=== PATIENT | male | born 1950 | race Caucasian/White ===

== ENCOUNTER 2017-06-02 10:32 | Outpatient (CLI) | payer BC ==
--- NOTE | 2017-06-02 15:14 | NM ---
WHOLE BODY BONE SCAN: INDICATION: Elevated PSA with low back pain. RADIOPHARMACEUTICAL: 33 mCi Technetium 99m-MDP IV. FINDINGS: There are numerous scattered areas of radiotracer accumulation involving the spine, pelvis, and right proximal femur. A mild area of activity is seen within the region of the right humeral head. Findi ngs are suspicious for osseous metastatic disease. IMPRESSION: Findings most suspicious for diffuse osseous metastatic disease of the spine, pelvis, right proximal femur, and right humerus. POS: [facility]
== END 2017-06-02 10:33 | disposition home or self-care (01) ==
LOC: NM 10:32
PROVIDERS: ATTEND Family Medicine
DX: R97.20 Elevated prostate specific antigen [PSA] (principal)
CPT/HCPCS: 78306; A9503

== ENCOUNTER 2017-06-23 07:04 | Outpatient (CLI) | payer BC ==
[2017-06-23 07:57] LABS: Estimated GFR-MDRD - POC Greater than 90
[2017-06-23] MEDS ORDERED: Gadobenate Dimeglumine 529 MG/1 ML (20ML VIAL) ONE (09:00)
--- NOTE | 2017-06-23 09:36 | CT ---
CONTRAST ENHANCED CT CHEST CONTRAST ENHANCED CT ABDOMEN AND PELVIS: History: Elevated PSA. History of prostate cancer. Technique: Contrast enhanced CT images of the chest, abdomen and pelvis were obtained. FINDINGS: There is extensive thoracic, lumbar, iliac, sacral, and proximal right femoral sclerotic osseous lesi ons compatible with extensive metastatic disease. No evidence of lung parenchymal lesions seen. No evidence of mediastinal, axillary, or hilar lymphadenopathy is seen. The liver, spleen, pancreas, gallbladder, adrenal glands, and kidneys are unremarkable. There does appear to be some mild periaortic lymphadenopathy. IMPRESSION: 1. Extensive osseous metastatic disease. 2. Periaortic lymphadenopathy. POS: [facility]
--- NOTE | 2017-06-23 11:04 | MRI ---
MRI PELVIS WITH AND WITHOUT CONTRAST: Date: 06/23/17 HISTORY: Prostate cancer. Bone mets. M25.551. Pain. COMPARISON: CT dated 03/01/16. FINDINGS: Bones: There is extensive osseous metastatic disease, markedly advanced from prior CT examination. Metastasi s involving the sacrum, ilium, lumbar spine, fever, and ischial tuberosities. No definite pathologic fracture is appreciated. Muscles: There is edema to the iliopsoas muscle. There is also edema within the adductors and obturator muscle s. Moderate edema within the gluteus sendy muscle. There is also abnormal edema within the quadratu s femoris muscle. Tendons: There is a complete rupture of the common hamstring tendon and semimembranosus and ischial tuberosity with a fluid-filled gap. The tendons are retracted approximately 3.0 cm. There is dilatation of the inferior gluteal veins. Intrapelvic Soft Tissues: Prostate is enlarged and abnormal. IMPRESSION: 1. Extensive osseous metastatic disease, markedly advanced from the 03/01/16 examination. 2. Pathologic fracture, nondisplaced, of the right acetabulum. 3. Full thickness rupture of the common hamstring tendon as well as semimembranosus with retraction of about 3.0 cm. 4. Extensive edema of the adductor musculature on the right, as well as the quadratus femoris. POS: [facility]
== END 2017-06-23 07:05 | disposition home or self-care (01) ==
LOC: SCSCT 07:04
PROVIDERS: ATTEND Internal Medicine Hematology & Oncology
DX: C79.51 Secondary malignant neoplasm of bone (principal); C61 Malignant neoplasm of prostate; M25.551 Pain in right hip; R59.0 Localized enlarged lymph nodes; R60.0 Localized edema; M84.48XA Pathological fracture, other site, initial encounter for fracture
CPT/HCPCS: 71260; 72197; 74177; A9579

== ENCOUNTER 2017-09-30 15:56 | Outpatient (CLI) | payer BC | END 2017-09-30 15:57 | disposition home or self-care (01) | LOC: BICRAD 15:56 | PROVIDERS: ATTEND Radiology Radiation Oncology | DX: C61 Malignant neoplasm of prostate (principal); C79.51 Secondary malignant neoplasm of bone; M25.551 Pain in right hip | CPT/HCPCS: 72170 ==

== ENCOUNTER 2017-10-20 13:13 | Outpatient (CLI) | payer BC | END 2017-10-20 13:14 | disposition home or self-care (01) | LOC: BICCT 13:13 | PROVIDERS: ATTEND Family Medicine | DX: R51 Headache (principal) | CPT/HCPCS: 70450 ==

== ENCOUNTER 2018-03-18 10:47 | Outpatient (CLI) | payer MEDICARE ==
[2018-03-18 11:30] LABS: Estimated GFR-MDRD - POC Greater than 90
[2018-03-18] MEDS ORDERED: Iopamidol 370 76% 100 ML VIAL ONE (13:32)
--- NOTE | 2018-03-18 15:52 | CT ---
CHEST AND ABDOMEN AND PELVIC CT SCAN WITH IV CONTRAST: Date: 03/18/18 HISTORY: Prostate cancer with bone metastasis in a 67-year-old male. Mid left back pain for 2 months. COMPARISON: 06/23/17. FINDINGS: Postcontrast CT examination of the chest, abdomen, and pelvis is performed. There is extensive blasti c metastasis throughout the visualized bony skeleton. No evidence for pulmonary nodule or acute pulmo nary parenchymal process. Stable 4.4 cm diameter aneurysmal dilatation of the ascending aorta. No med iastinal or hilar mass or adenopathy. Three vessel coronary artery calcific disease. Several small stable hypodensities within the liver. Stable approximately 4.0 cm diameter circumscrib ed fluid collection in the anson hepatis, possibly a choledochal cyst. There has been definite improv ement in the previously noted retroperitoneal, periaortic, and aortocaval adenopathy. One left periao rtic node now measures 0.6 cm short axis, where it previously measured 0.8 cm short axis. A second le ft periaortic node now measures 0.6 cm, where it previously measured 1.0 cm short axis. A somewhat mo re caudal left periaortic node measures 0.8 cm, where it previously measured 1.5 cm transversely. Aor tocaval node just above the level of the bifurcation posteriorly measures 0.5 cm short axis, where it previously measured 1.0 cm short axis. No evidence for renal calculi or acute obstruction. Several small renal hypodensities, stable, ema dence for small cysts. No abscess or abnormal fluid collection. No evidence of ascites. IMPRESSION: 1. Overall stable extensive blastic bone metastasis. 2. Stable thin-walled fluid collection in the anson hepatis, possibly a choledochal cyst. 3. Stable renal cysts. 4. Definite improvement in the previously noted retroperitoneal and periaortic adenopathy when lidia red to 06/23/17. POS: [facility]
--- NOTE | 2018-03-18 16:06 | NM ---
WHOLE BODY BONE SCAN: 03/18/18 Reference made to 06/02/17 exam. CLINICAL HISTORY: Malignant neoplasm of the prostate. RADIOPHARMACEUTICAL: 32 millicuries technetium 99m MDP IV. FINDINGS/IMPRESSION: Redemonstration of diffuse foci of abnormal radiotracer uptake involving the spine, pelvis, right mihaela ulder girdle, ribs bilaterally, and proximal right femur. The overall distribution of osseous metastatic disease is grossly stable. Continued imaging followup may prove useful. POS: [facility]
== END 2018-03-18 10:48 | disposition home or self-care (01) ==
LOC: NM 10:47
PROVIDERS: ATTEND Internal Medicine Hematology & Oncology
DX: C61 Malignant neoplasm of prostate (principal); C79.51 Secondary malignant neoplasm of bone; N28.1 Cyst of kidney, acquired; R59.0 Localized enlarged lymph nodes
CPT/HCPCS: 71260; 74177; 78306; 82565; A9503

== ENCOUNTER 2018-03-31 13:33 | Outpatient (CLI) | payer MEDICARE ==
[2018-03-31] MEDS ORDERED: Gadobenate Dimeglumine 529 MG/1 ML (20ML VIAL) ONE (15:21)
--- NOTE | 2018-03-31 18:04 | MRI ---
MRI OF LUMBAR SPINE WITH AND WITHOUT CONTRAST: 03/31/18 HISTORY: Prostate cancer, C61. Bone mets C79.51. COMPARISON: None. FINDINGS: The aortic contour is nonaneurysmal. T2 hyperintensity structure is unchanged in the anson hepatis. T 2 hyperintense foci present throughout both kidneys suggestive of cysts. Osseous metastatic disease is present involving the L4, L3, L2, L1, T12, spinous processes as well as the L4 right lamina pedicle on posterior vertebral body, L1 superior end plate, T12 and T11 vertebra l bodies as well as posterior elements of T12. Metastatic disease is also seen involving the L3 and L 2 vertebral bodies and posterior elements. There is enhancement of the metastatic focus of the right pedicle at L4 as well as the L3 vertebral body and L4 spinous process. Levels are as follows: T12-L1: Circumferential disc bulge. Small central annular fissure. Mild facet arthrosis. No significa nt neural foraminal or spinal canal narrowing. L1-2: Circumferential disc bulge. Small bilateral subforaminal and posterior disc osteophyte complexe s. No significant neural foraminal or spinal canal narrowing. L2-3: Mild disc desiccation. There is a central small annular fissure and disc protrusion. The spinal canal at this level measures approximately 1 cm. Mild facet hypertrophic changes. No significant adrianne ral foraminal narrowing. L3-4: Very low grade disc bulge. There are moderate bilateral subforaminal posterior disc osteophyte complexes. Moderate bilateral neural foraminal narrowing. Spinal canal is not significantly narrowed. L4-5: There is disc desiccation. Low grade central annular fissure. Mild facet arthropathy. Very low grade bilateral subforaminal and posterior disc osteophyte complexes. Mild bilateral neural foraminal narrowing. L5-S1: Moderate degenerative disc space height loss. Central annular fissure. Moderate hypertrophic c hanges. Moderate right and mild left sided neural foraminal narrowing. Perineural cyst is noted on th e left S2 nerve root. IMPRESSION: Extensive osseous metastatic disease with low grade spondylosis. No evidence of spinal cord impingeme nt, nerve encroachment, or definite nerve root abutment. POS: [facility]
== END 2018-03-31 13:34 | disposition home or self-care (01) ==
LOC: BICMRI 13:33
PROVIDERS: ATTEND Internal Medicine Hematology & Oncology
DX: C61 Malignant neoplasm of prostate (principal); C79.51 Secondary malignant neoplasm of bone; M47.816 Spondylosis without myelopathy or radiculopathy, lumbar region
CPT/HCPCS: 72157; 72158; A9579

== ENCOUNTER 2018-11-23 08:52 | Outpatient (CLI) | payer MEDICARE ==
--- NOTE | 2018-11-23 10:23 | CT ---
CT CHEST AND ABDOMEN AND PELVIS WITH CONTRAST: Oral contrast was also administered. INDICATION: Prostate cancer with bone metastasis. COMPARISON: CT chest, abdomen, and pelvis 03/18/2018. FINDINGS: CT CHEST: The lung guido are clear. Some mild atelectasis in the left lung base. Some minimal stranding in t he right lung base. No pulmonary mass or nodule. Mediastinum unremarkable. Mild aneurysmal dilatation of the [id number] aorta has been previously not ed and is stable. No mediastinal or hilar adenopathy. No evidence of axillary adenopathy. Thyroid unremarkable. The diffuse sclerotic bone lesions seen throughout the thoracic spine and rib cage appear unchanged. IMPRESSION: Stable chest CT findings. Diffuse bone metastasis again noted without evidence of significant change . CT ABDOMEN AND PELVIS: Liver, spleen, and pancreas unremarkable. The cystic structure in the anson hepatis has been previou sly described and is a possible choledochal cyst. This is a stable finding. Adrenal glands and kidneys unremarkable. Small bowel loops unremarkable. Colon unremarkable with scattered stool throughout. Aorta normal ca liber. There are tiny nonspecific periaortic lymph nodes which are subcentimeter today. There has been cont inued regression of the retroperitoneal lymph nodes when compared to the 03/18/2018 exam. A small per iaortic lymph node to the left aorta just above the bifurcation measures 7 mm today. This node previ ously measured 8-10 mm. Other small lymph nodes noted previously in the 6-8 mm range have regressed. Images through the pelvis show sigmoid diverticulosis. No pelvic adenopathy. No evidence of prostat ic enlargement. The diffuse sclerotic lesion seen throughout the lumbar spine and pelvis showed no significant interv al change. IMPRESSION: 1. Continued regression of the retroperitoneal lymph nodes. 2. Diffuse bony metastatic sclerotic lesions again noted and without evidence of significant change. POS: [facility]
--- NOTE | 2018-11-23 14:59 | NM ---
WHOLE BODY BONE SCAN: HISTORY: Malignant neoplasm of prostate. COMPARISON: 03/18/2018. RADIOPHARMACEUTICAL: 32 mCi Technetium 99m MDP injected intravenously. FINDINGS: Numerous foci of increased uptake in the skeleton are again seen involving the spine, pelvis, ribs, r ight shoulder, and right proximal femur. No new lesions are seen. Tracer excretion through the kidn eys is within normal limits. IMPRESSION: Osseous metastatic disease, essentially stable since 03/18/2018. POS: [facility]
== END 2018-11-23 08:53 | disposition home or self-care (01) ==
LOC: CT 08:52
PROVIDERS: ATTEND Internal Medicine Hematology & Oncology
DX: C61 Malignant neoplasm of prostate (principal); C79.51 Secondary malignant neoplasm of bone
CPT/HCPCS: 71260; 74177; 78306; A9503

== ENCOUNTER 2018-12-07 12:29 | Outpatient (CLI) | payer MEDICARE | END 2018-12-07 12:30 | disposition home or self-care (01) | LOC: ULT 12:29 | PROVIDERS: ATTEND Internal Medicine Hematology & Oncology | DX: C61 Malignant neoplasm of prostate (principal); C79.51 Secondary malignant neoplasm of bone; I08.8 Other rheumatic multiple valve diseases | CPT/HCPCS: 93306 ==

== ENCOUNTER 2019-04-27 08:08 | Day surgery (SDC) | payer MEDICARE ==
[2019-04-26 08:39] VITALS: BMI 23.0
[2019-04-27] MEDS ORDERED: Ketorolac Tromethamine 30 MG/ML VIAL ONE (08:42)
--- NOTE | 2019-04-27 08:55 | RAD ---
CHEST 1 VIEW: Date: 04/27/2019 INDICATION: History of preop evaluation. COMPARISON: Prior PA and lateral dated 01/06/19. IMPRESSION: No acute air space opacity or pleural effusion is evident. Heart size is normal. Scattered osteoblast ic metastatic lesions of the bilateral chest wall and thoracolumbar spine are stable appearing. POS: [facility]
[2019-04-27 09:11] LABS: #Lymphocytes 0.5 thou/uL (1.20-3.40); #Monocytes 0.1 thou/uL (0.11-0.59); #Neutrophils 9.8 thou/uL (1.40-6.50); %Eosinophils 0.1 % (0.0-10.0); %Lymphocytes 4.6 % (21.0-51.0); %Monocytes 0.5 % (0.0-10.0); %Neutrophils 94.8 % (42.0-75.0); Hemoglobin 12.7 g/dL (14.0-18.0); Mean Corpuscular HGB CONC 33.5 g/dL (32.0-36.0); Mean Corpuscular Hemoglobin 31.8 pg (27.0-31.0); Mean Corpuscular Volume 94.8 fL (78.0-98.0); Mean Platelet Volume 7.6 fL (7.4-10.4); Platelet Count 281 thou/uL (130-400); RBC Distribution Width 14.3 % (11.5-14.5); White Blood Cell (WBC) Count 10.3 thou/uL (4.8-10.8)
[2019-04-27 09:33] LABS: Anion Gap 13 mmol/L (10-20); BUN (Urea Nitrogen) 24 mg/dL (8.4-25.7); Calc. Creatinine Clearance 107 mL/min (70-130); Carbon Dioxide 21 mmol/L (23-31); Chloride 112 mmol/L (98-107); Estimated GFR-MDRD Greater than 90; Glucose 138 mg/dL (80-115); Potassium 4.4 mmol/L (3.5-5.1); Sodium 142 mmol/L (136-145)
[2019-04-27] MEDS ORDERED: Lidocaine 1% w/Epinephrine 1:100K 20 ML VIAL ONE (10:00)
[2019-04-27] MEDS ORDERED: Bupivacaine 0.25% HCL 30 ML VIAL ONE (10:00)
[2019-04-27] MEDS ORDERED: Midazolam HCl 2 mg/2 ml Vial ONE (10:02)
[2019-04-27] MEDS ORDERED: Fentanyl 100 MCG/2 ML VIAL ONE (10:02)
--- NOTE | 2019-04-27 11:56 | RAD ---
Exam: Chest one view HISTORY:Status post Mediport catheter placement Comparison: 04/27/2019 FINDINGS: Cardiac silhouette: Normal Aorta: Unremarkable Pulmonary vessels: Normal Costophrenic angles: Clear LUNGS: No masses or consolidation. Segmental scarring in the left lower lobe. Lines and tubes: Interval placement of right-sided Port-A-Cath, terminating in the superior vena cava . Pneumothorax: None Osseous abnormalities: None IMPRESSION: 1. Interval placement of right-sided Port-A-Cath, terminating in the superior vena cava. 2. No pneumothorax.
[2019-04-27] MEDS ORDERED: PROPOFOL 200 MG/20 ML VIAL ONE (15:59)
--- NOTE | 2019-04-28 05:23 | OP ---
DATE OF PROCEDURE: 04/27/2019 PREOPERATIVE DIAGNOSIS: Metastatic prostate cancer. POSTOPERATIVE DIAGNOSIS: Metastatic prostate cancer. OPERATION PERFORMED: Placement of a right subclavian low-profile power compatible MediPort. ANESTHESIA: Total intravenous anesthesia with local using 0.25% Marcaine with epinephrine. INDICATIONS: The patient is a 68-year-old white male, who presented with metastatic prostate cancer. MediPort placement was requested for chemotherapy administration. DESCRIPTION OF OPERATION: Informed consent was obtained. The patient was taken to the operating room where total intravenous anesthesia was obtained with the patient in supine position. Right periclavicular area was prepped with ChloraPrep and draped in sterile fashion. Local anesthetic was infiltrated and a large-gauge needle was passed under the clavicle in the subclavian vein. Guidewire was passed through the needle and fluoroscopically confirmed to enter the superior vena cava. Additional local anesthetic was infiltrated and transverse incision was created based on needle insertion site. A subcutaneous pocket was dissected inferiorly. Introducer dilator was passed over the guidewire under fluoroscopic guidance. The guidewire and dilator were removed, and the catheter was passed through the introducer. The tip of the catheter was positioned at the atriocaval junction and the catheter was trimmed to the appropriate length and secured to the locking hub of the MediPort. The port was then placed in the subcutaneous pocket where it was secured to the pectoral fascia with 2 interrupted sutures of 3-0 Prolene. The incision was then closed in layers with 3-0 and 4-0 Monocryl. Additional local anesthetic was infiltrated. The port was cannulated with a Mahoney needle and it aspirated blood freely and was flushed with heparinized saline. Dermabond was placed externally on the skin incision. There were no complications. Blood loss was negligible. The patient tolerated the procedure well and was taken to recovery room in stable condition. FINDINGS: A low-profile port was selected, because of his body habitus. His anatomy externally and internally appeared to be within normal limits. Fluoroscopy was used throughout the procedure. There were no complications and no significant blood loss. He was taken to recovery in stable condition. Job ID: [id number]
--- NOTE | 2019-05-02 10:22 | EKG ---
Test Reason : PREOP Blood Pressure : / mmHG Vent. Rate : 077 BPM Atrial Rate : 077 BPM P-R Int : 166 ms QRS Dur : 088 ms QT Int : 392 ms P-R-T Axes : 037 011 016 degrees QTc Int : 443 ms Normal sinus rhythm Normal ECG When compared with ECG of 01-NOV-2014 09:02, Questionable change in QRS axis Confirmed by INGA DOW (2) on 05/02/2019 10:21:57 AM Referred By: MOISE Confirmed By:INGA DOW
== END 2019-04-27 12:15 | disposition home or self-care (01) ==
LOC: SDC 08:08
PROVIDERS: ATTEND Specialist
PROC: 0JH63WZ Insertion of Totally Implantable Vascular Access Device into Chest Subcutaneous Tissue and Fascia, Percutaneous Approach (ICD-10-PCS; principal; 2019-04-27)
PROC: 02HV33Z Insertion of Infusion Device into Superior Vena Cava, Percutaneous Approach (ICD-10-PCS; 2019-04-27)
DX: C61 Malignant neoplasm of prostate (principal); C79.51 Secondary malignant neoplasm of bone; M19.90 Unspecified osteoarthritis, unspecified site; Z79.52 Long term (current) use of systemic steroids; Z79.899 Other long term (current) drug therapy
CPT/HCPCS: 36561; 71045; 80048; 80053; 82248; 83615; 84100; 84153; 84550; 85025; 93005; C1788; 93010; J0690; J1642; J1885; J2250; J2704; J3010; S0020

== ENCOUNTER 2019-06-01 08:23 | Outpatient (CLI) | payer MEDICARE ==
--- NOTE | 2019-06-01 11:01 | CT ---
CT OF CHEST AND ABDOMEN AND PELVIS PERFORMED WITH INTRAVENOUS CONTRAST ENHANCEMENT: HISTORY: Prostate cancer with secondary neoplasm of bone. Followup. Patient on chemotherapy. COMPARISON: 11/23/2018 study. FINDINGS: The lungs are clear of any infiltrative process. Some interstitial changes seen in the right upper l obe on the prior exam which appear to represent some subtle tree-in-bud nodularity have resolved. Wi thin the superior segment of the right lower lobe there has been development of a small 6-7 mm slight ly ill-defined nodule seen on axial image 35. Review is also made of a 2018 CT examination. It was not present at that time. Interstitial change in the left base is stable and appears to represent so me scarring. Tiny left pleural effusion is present. This has not present on the prior exam. There is no significant mediastinal, hilar, or axillary lymphadenopathy noted. CT OF ABDOMEN PERFORMED WITH CONTRAST ENHANCEMENT: Small hypodensities are seen within the liver and are stable, most likely small cysts. The spleen sh ows no focal abnormalities. It measures 13.6 cm in length. It appears slightly enlarged. Pancreas region and gallbladder are unremarkable. Right and left adrenal glands and right and left kidneys are normal in size. Tiny subcentimeter odalys aortic nodes are not substantially different than the prior exam. A left periaortic node measured on the prior examination at 7 mm on axial image 89 is unchanged. No significant mesenteric lymphadenop athy. CT OF PELVIS PERFORMED WITH CONTRAST ENHANCEMENT: Some moderate diverticulosis of the sigmoid colon. No evidence of any significant pelvic lymphadenop athy or mass. No significant inguinal adenopathy. Review of osseous structures once again shows numerous blastic bone lesions. These changes appear st able. IMPRESSION: 1. Stable overall examination with the exception of the development of a small 7 mm somewhat ill-def ined superior segment right lower lobe pulmonary nodule. It is possible this is a tiny area of nodul ar pneumonitis change, but could represent a new pulmonary nodule and would warrant followup. There is also a tiny left pleural effusion that has developed since the prior exam. 2. Borderline spleen size. 3. Colonic diverticulosis. 4. No change in size of the periaortic nodes. 5. Stable appearance to the bone lesions. 6. 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 This is located approximately 4-5 cm distal from the jacki gin and is stable in size as compared to the 11/13/2018 as well as the 03/18/2018 study. POS: [facility]
--- NOTE | 2019-06-01 13:20 | NM ---
Whole body bone scan: 06/01/2019 COMPARISON: 11/23/2018 TECHNIQUE: Anterior and posterior whole-body imaging obtained following the intravenous administratio n of 33 mCi technetium 99m labeled MDP Findings: Physiologic activity in the kidneys and urinary bladder noted. Metastatic foci are noted in the region of the proximal right femoral shaft and right femoral neck. Foci of increased radiotracer activity in the region of bilateral sacroiliac joints/medial iliac wings suggest osseous metastatic disease, right greater than left. Multifocal pelvic metastatic disease noted, most prominent on the right in the region of the ischii and inferior pubic ramus. Numerous lesions of the spine again noted, including multiple small upper thoracic spine lesions best seen on posterior imaging, as well as prominent lesions at the T10 and T11 levels. Numerous additional lesions are note d within the lumbar spine, stable, most conspicuous within the upper lumbar spine. A stable lesion within the medial aspect of the posterior left T7 rib is suspected. Stable upper late ral right rib lesion and stable lesion overlying the proximal right humerus. No new osseous metastatic foci. IMPRESSION: No significant interval change in extensive osseous metastatic disease when compared to t he 11/23/2018 examination.
[2019-06-01] MEDS ORDERED: Iopamidol 370 76% 100 ML VIAL ONE (14:38)
== END 2019-06-01 08:24 | disposition home or self-care (01) ==
LOC: CT 08:23
PROVIDERS: ATTEND Internal Medicine Hematology & Oncology
DX: C79.51 Secondary malignant neoplasm of bone (principal); C61 Malignant neoplasm of prostate; J90 Pleural effusion, not elsewhere classified; R91.1 Solitary pulmonary nodule; K57.30 Diverticulosis of large intestine without perforation or abscess without bleeding
CPT/HCPCS: 71260; 74177; 78306; A9503; Q9967

== ENCOUNTER 2019-07-25 08:06 | Day surgery (SDC) | payer MEDICARE ==
[2019-07-24 12:52] VITALS: BMI 24.4
[2019-07-25 08:47] LABS: INR-International Normal Ratio 0.9; Prothrombin Time 11.9 SEC (12.0-14.7)
[2019-07-25 08:48] LABS: PTT 33.7 SEC (22.9-36.1)
[2019-07-25 15:59] VITALS: BP 118/77; TEMP 97.9
--- NOTE | 2019-07-25 16:51 | CT ---
CT-guided bone lesion biopsy right ilium: DATE: 07/25/2019 HISTORY: 68-year-old male with history of prostate cancer presents with numerous osteoblastic skeletal lesions . TECHNIQUE: Signed informed consent obtained. Patient placed prone on CT table. One of the right iliac bone scler otic lesions was targeted. The skin posterior to the posterior superior iliac spine was prepped and draped in usual sterile fashion. 25-gauge needle used to apply buffered lidocaine superficially and d eeply, including at the periosteum. 12-gauge Arrow Oncontrol bone biopsy needle with stylette, was advanced under step CT guidance, gaining purchase at the posterior cortical bone. Stylette was remove d. Normal rise drill was mounted on the hollow outer cannula, and was advanced deep into the iliac bone, and withdrawn. Compression was held at the puncture site. Bone plug tissue sample fragments or placed on slide and given to the pathologist. Patient tolerated procedure well. No comp occasions. IMPRESSION: Successful 12-gauge motorized core biopsy of one of the numerous osteoblastic skeletal lesions, targe ting right ilium.
== END 2019-07-25 12:40 | disposition home or self-care (01) ==
LOC: CT 08:06
PROVIDERS: ATTEND Internal Medicine Hematology & Oncology
PROC: 0QB23ZX Excision of Right Pelvic Bone, Percutaneous Approach, Diagnostic (ICD-10-PCS; principal; 2019-07-25)
DX: C61 Malignant neoplasm of prostate (principal); C79.51 Secondary malignant neoplasm of bone; M19.90 Unspecified osteoarthritis, unspecified site
CPT/HCPCS: 20225; 36415; 77002; 85610; 85730; 88307; 88311; 88333; 88342

== ENCOUNTER 2020-01-16 12:31 | Outpatient (CLI) | payer MEDICARE ==
--- NOTE | 2020-01-16 13:37 | ULT ---
ULTRASOUND DOPPLER DUPLEX VENOUS RIGHT UPPER EXTREMITY: DATE: 01/16/2020 HISTORY: Right upper extremity edema. 69-year-old male. TECHNIQUE: Grayscale, color-flow, and spectral analysis, of the right internal jugular, subclavian, axillary, br achial, basilic, cephalic, radial, and ulnar, veins. Compression and release applied to all veins except the subclavian. FINDINGS: There is demonstration of blood flow in the subclavian vein. There is demonstration of blood flow and normal compressibility in all other veins. IMPRESSION: Negative. No deep venous thrombosis of right upper extremity.
== END 2020-01-16 12:32 | disposition home or self-care (01) ==
LOC: ULT 12:31
PROVIDERS: ATTEND Internal Medicine Hematology & Oncology
DX: M79.601 Pain in right arm (principal); R60.0 Localized edema

== ENCOUNTER 2020-04-16 13:30 | Outpatient (CLI) | payer MEDICARE ==
[2020-04-16 14:41] LABS: Estimated GFR-MDRD - POC Greater than 90
--- NOTE | 2020-04-16 15:40 | MRI ---
MRI THORACIC SPINE WITH AND WITHOUT CONTRAST: 04/16/20 INDICATIONS: Metastatic prostate cancer. Back pain. Prior bone scan from 05/2019 demonstrate evidence of diffuse metastatic osseous disease involving spin e and pelvis. FINDINGS: Abnormal signal is seen in multiple thoracic vertebrae consistent with metastatic involvement. Verteb ral bodies maintain height and alignment without compression. Diffuse abnormal signal seen in the T1 vertebra. Abnormal signal is seen in the posterior T2 vertebra to the left. Abnormal signal seen post erior T3. Focal signal abnormality at T5, T6, T7, T8, T9, T10, T11 and T12. These findings correspond to CT of 06/01/19 which showed numerous areas of sclerosis involving the tho racic spine. Disc bulge at T2-T3 flattens the anterior thecal sac without cord compression. Disc bulge also seen a t T3-4 and T4-5 with small central protrusion at T4-5 indenting the anterior thecal sac. No evidence of central canal stenosis. The thoracic cord signal is normal. IMPRESSION: 1. Extensive metastatic disease to the thoracic spine with involvement of the visualized vertebr a with exception of T4. 2. Small disc protrusion at T4-5 and disc bulge at T2-3 and T3-4. POS: [facility]
== END 2020-04-16 13:31 | disposition home or self-care (01) ==
LOC: MRI 13:30
PROVIDERS: ATTEND Radiology Radiation Oncology
DX: C79.51 Secondary malignant neoplasm of bone (principal); C61 Malignant neoplasm of prostate; M51.24 Other intervertebral disc displacement, thoracic region
CPT/HCPCS: 72157; 82565

== ENCOUNTER 2020-05-08 11:01 | Outpatient (CLI) | payer MEDICARE ==
--- NOTE | 2020-05-08 16:57 | NM ---
RADIONUCLIDE THERAPY (WITH RADIUM-223): 05/08/20 HISTORY: 69-year-old male with metastatic prostate cancer. Malignant neoplasm of prostate. Second malignant ne oplasm of bone. TECHNIQUE: After discussing the risks, benefits, alternatives and radiation precaution issues with the patient, verbal and written consent were obtained for the intravenous administration of Torreon-223. The patien t verbalized understanding. 125.8 microcuries of Torreon-223 were slowly injected intravenously over one minute. There were no imm ediate complications. This was the first of six treatments. The patient will return for the second treatment in six weeks. IMPRESSION: Radionuclide therapy with Torreon-223 as above. POS: [facility]
== END 2020-05-08 11:02 | disposition home or self-care (01) ==
LOC: NM 11:01
PROVIDERS: ATTEND Radiology Radiation Oncology
DX: C61 Malignant neoplasm of prostate (principal); C79.51 Secondary malignant neoplasm of bone
CPT/HCPCS: 79101; A9606; J1642

== ENCOUNTER 2020-05-23 11:55 | Outpatient (CLI) | payer MEDICARE | END 2020-05-23 11:56 | disposition home or self-care (01) | LOC: BICRAD 11:55 | PROVIDERS: ATTEND Radiology Radiation Oncology | DX: C61 Malignant neoplasm of prostate (principal); C79.51 Secondary malignant neoplasm of bone ==

== ENCOUNTER 2020-06-14 10:46 | Outpatient (CLI) | payer MEDICARE | END 2020-06-14 10:47 | disposition home or self-care (01) | LOC: NM 10:46 | PROVIDERS: ATTEND Radiology Radiation Oncology | DX: Z51.0 Encounter for antineoplastic radiation therapy (principal); C61 Malignant neoplasm of prostate; C79.51 Secondary malignant neoplasm of bone | CPT/HCPCS: 79101; A9606; J1642 ==

== ENCOUNTER 2020-07-26 10:56 | Outpatient (CLI) | payer MEDICARE ==
[2020-07-26] MEDS ORDERED: Sodium Chloride 0.9% 10 ML ONE (12:15)
== END 2020-07-26 10:57 | disposition home or self-care (01) ==
LOC: NM 10:56
PROVIDERS: ATTEND Radiology Radiation Oncology
DX: C61 Malignant neoplasm of prostate (principal); C79.51 Secondary malignant neoplasm of bone
CPT/HCPCS: 79101; A9606; J1642

== ENCOUNTER 2020-08-12 08:10 | Outpatient (CLI) | payer MEDICARE ==
[2020-08-12 09:12] LABS: Estimated GFR-MDRD - POC Greater than 90
[2020-08-12] MEDS ORDERED: Iopamidol 370 76% 100 ML VIAL ONE (10:34)
== END 2020-08-12 08:11 | disposition home or self-care (01) ==
LOC: CT 08:10
PROVIDERS: ATTEND Internal Medicine Hematology & Oncology
DX: C61 Malignant neoplasm of prostate (principal); C79.51 Secondary malignant neoplasm of bone
CPT/HCPCS: 71260; 74177; 78306; 82565; A9503; Q9967

== ENCOUNTER 2020-08-29 11:03 | Outpatient (CLI) | payer MEDICARE | END 2020-08-29 11:04 | disposition home or self-care (01) | LOC: NM 11:03 | PROVIDERS: ATTEND Radiology Radiation Oncology | DX: C61 Malignant neoplasm of prostate (principal); C79.51 Secondary malignant neoplasm of bone | CPT/HCPCS: 79101; A9606; J1642 ==

== ENCOUNTER 2020-10-04 10:50 | Outpatient (CLI) | payer MEDICARE ==
[2020-10-04] MEDS ORDERED: Sodium Chloride 0.9% 10 ML ONE (12:16)
== END 2020-10-04 10:51 | disposition home or self-care (01) ==
LOC: NM 10:50
PROVIDERS: ATTEND Radiology Radiation Oncology
DX: C61 Malignant neoplasm of prostate (principal); C79.51 Secondary malignant neoplasm of bone
CPT/HCPCS: 79101; A9606; J1642

== ENCOUNTER 2020-11-17 08:26 | Emergency (ER) | payer MEDICARE ==
[2020-11-17 09:01] LABS: #Eosinphils 0.1 thou/uL (0.0-0.7); #Lymphocytes 0.3 thou/uL (1.20-3.40); #Monocytes 0.3 thou/uL (0.11-0.59); #Neutrophils 3.5 thou/uL (1.40-6.50); %Basophils 0.2 % (0.0-1.0); %Eosinophils 2.3 % (0.0-10.0); %Lymphocytes 6.9 % (21.0-51.0); %Monocytes 8.1 % (0.0-10.0); %Neutrophils 82.5 % (42.0-75.0); Hemoglobin 8.5 g/dL (14.0-18.0); Mean Corpuscular HGB CONC 34.7 g/dL (32.0-36.0); Mean Corpuscular Hemoglobin 32.3 pg (27.0-31.0); Mean Corpuscular Volume 93.1 fL (78.0-98.0); Mean Platelet Volume 8.7 fL (7.4-10.4); Platelet Count 56 thou/uL (130-400); RBC Distribution Width 13.9 % (11.5-14.5); Red Blood Cell (RBC) Count 2.64 mill/uL (4.70-6.10); White Blood Cell (WBC) Count 4.2 thou/uL (4.8-10.8)
[2020-11-17 09:02] LABS: INR-International Normal Ratio 1.6; PTT 50.7 sec (22.9-36.1); Prothrombin Time 19.1 sec (12.0-14.7)
[2020-11-17 09:09] LABS: ALT (SGPT) 10 U/L (8-55); AST (SGOT) 39 U/L (5-34); Albumin 3.8 g/dL (3.4-4.8); Alkaline Phosphatase 40 U/L (40-110); Anion Gap 11 mmol/L (10-20); BUN (Urea Nitrogen) 20 mg/dL (8.4-25.7); Bilirubin, Total 1.1 mg/dL (0.2-1.2); CK (CPK) 137 U/L (30-200); Calc. Creatinine Clearance 0 mL/min (70-130); Calcium 8.7 mg/dL (7.8-10.44); Carbon Dioxide 22 mmol/L (23-31); Chloride 110 mmol/L (98-107); Globulin 2.2 g/dL (2.4-3.5); Glucose 113 mg/dL (80-115); Potassium 3.8 mmol/L (3.5-5.1); Sodium 139 mmol/L (136-145)
[2020-11-17 09:23] LABS: D-Dimer Test Greater than 20.00 *mcg/mL (0.27-0.43)
== END 2020-11-17 11:00 | disposition home or self-care (01) ==
LOC: ERS 08:26
DX: D69.6 Thrombocytopenia, unspecified (principal); R53.1 Weakness; G70.00 Myasthenia gravis without (acute) exacerbation; Z85.46 Personal history of malignant neoplasm of prostate
CPT/HCPCS: 36415; 80053; 82550; 85025; 85379; 85610; 85730; J1642

== ENCOUNTER 2020-12-17 10:17 | Day surgery (SDC) | payer MEDICARE ==
[2020-12-17] MEDS ORDERED: Acetaminophen 500 MG TAB PO PRN (10:35)
[2020-12-17] MEDS ORDERED: diphenhydrAMINE 25 MG CAP PO PRN (10:35)
[2020-12-17] MEDS ORDERED: Sodium Chloride 0.9% 20 ML ONE (10:46)
[2020-12-17 12:23] VITALS: TEMP 97.8
[2020-12-17 14:45] VITALS: BP 105/61
== END 2020-12-17 14:46 | disposition home or self-care (01) ==
LOC: ONC/OP 10:17
PROVIDERS: ATTEND Internal Medicine Hematology & Oncology
PROC: 30233N1 Transfusion of Nonautologous Red Blood Cells into Peripheral Vein, Percutaneous Approach (ICD-10-PCS; principal; 2020-12-17)
DX: D64.9 Anemia, unspecified (principal); D69.6 Thrombocytopenia, unspecified
CPT/HCPCS: 36430; 86850; 86900; 86901; J1642; P9016

== ENCOUNTER 2021-01-10 09:38 | Outpatient (CLI) | payer MEDICARE ==
[2021-01-10] MEDS ORDERED: Magnevist 469MG/ML 20 ML VIAL ONE (10:21)
== END 2021-01-10 09:39 | disposition home or self-care (01) ==
LOC: MRI 09:38
PROVIDERS: ATTEND Internal Medicine Hematology & Oncology
DX: C61 Malignant neoplasm of prostate (principal); R51.9 Headache, unspecified; R11.0 Nausea; C79.51 Secondary malignant neoplasm of bone; D65 Disseminated intravascular coagulation [defibrination syndrome]; D70.8 Other neutropenia; S06.5X9A Traumatic subdural hemorrhage with loss of consciousness of unspecified duration, initial encounter
CPT/HCPCS: 70553; A9579

== ENCOUNTER 2021-01-10 11:05 | Emergency (ER) | payer MEDICARE ==
[2021-01-10 12:15] LABS: #Lymphocytes 0.3 thou/uL (1.20-3.40); #Monocytes 0.1 thou/uL (0.11-0.59); #Neutrophils 1.9 thou/uL (1.40-6.50); %Basophils 0.4 % (0.0-1.0); %Eosinophils 0.6 % (0.0-10.0); %Lymphocytes 11.8 % (21.0-51.0); %Monocytes 4.7 % (0.0-10.0); %Neutrophils 82.5 % (42.0-75.0); Hemoglobin 8.7 g/dL (14.0-18.0); Mean Corpuscular HGB CONC 34.9 g/dL (32.0-36.0); Mean Corpuscular Hemoglobin 32.4 pg (27.0-31.0); Mean Corpuscular Volume 92.7 fL (78.0-98.0); Platelet Count 41 thou/uL (130-400); RBC Distribution Width 18.4 % (11.5-14.5); Red Blood Cell (RBC) Count 2.69 mill/uL (4.70-6.10); White Blood Cell (WBC) Count 2.3 thou/uL (4.8-10.8)
[2021-01-10 12:39] LABS: Albumin 3.6 g/dL (3.4-4.8)
[2021-01-10 12:41] LABS: Calcium 8.5 mg/dL (7.8-10.44); Chloride 107 mmol/L (98-107); Potassium 3.4 mmol/L (3.5-5.1); Sodium 139 mmol/L (136-145)
[2021-01-10 12:42] LABS: Globulin 2.8 g/dL (2.4-3.5); Glucose 96 mg/dL (80-115); Protein, Total 6.4 g/dL (5.8-8.1)
[2021-01-10 12:43] LABS: Carbon Dioxide 25 mmol/L (23-31)
[2021-01-10 12:45] LABS: Alkaline Phosphatase 55 U/L (40-110); Calc. Creatinine Clearance 0 mL/min (70-130)
[2021-01-10 12:46] LABS: BUN (Urea Nitrogen) 22 mg/dL (8.4-25.7)
[2021-01-10 12:47] LABS: AST (SGOT) 36 U/L (5-34)
[2021-01-10 12:48] LABS: ALT (SGPT) 23 U/L (8-55)
[2021-01-10 12:53] LABS: Anion Gap 10 mmol/L (10-20)
== END 2021-01-10 16:10 | disposition home or self-care (01) ==
LOC: ERS 11:05
DX: S06.5X9A Traumatic subdural hemorrhage with loss of consciousness of unspecified duration, initial encounter (principal); D65 Disseminated intravascular coagulation [defibrination syndrome]; G70.00 Myasthenia gravis without (acute) exacerbation; Z85.46 Personal history of malignant neoplasm of prostate; Z79.899 Other long term (current) drug therapy; C61 Malignant neoplasm of prostate; R51.9 Headache, unspecified; R11.0 Nausea; C79.51 Secondary malignant neoplasm of bone; D70.8 Other neutropenia
CPT/HCPCS: 36430; 70553; 80053; 85025; 86850; 86900; 86901; 99284; P9035; 36415; A9579; J1642

== ENCOUNTER 2021-01-17 08:30 | Day surgery (SDC) | payer MEDICARE ==
[2021-01-17] MEDS ORDERED: Acetaminophen 500 MG TAB PO SCH (09:00)
[2021-01-17] MEDS ORDERED: diphenhydrAMINE 25 MG CAP PO SCH (09:00)
[2021-01-17] MEDS ORDERED: Sodium Chloride 0.9% 20 ML ONE (09:10)
[2021-01-17 10:40] VITALS: BP 89/52; TEMP 97.5
== END 2021-01-17 10:15 | disposition home or self-care (01) ==
LOC: ONC/OP 08:30
PROVIDERS: ATTEND Internal Medicine Hematology & Oncology
PROC: 30233R1 Transfusion of Nonautologous Platelets into Peripheral Vein, Percutaneous Approach (ICD-10-PCS; principal; 2021-01-17)
DX: D64.9 Anemia, unspecified (principal); D69.6 Thrombocytopenia, unspecified
CPT/HCPCS: 36430; 86850; 86900; 86901; P9035; Q0163

== ENCOUNTER 2021-01-24 12:03 | Day surgery (SDC) | payer MEDICARE ==
[2021-01-24] MEDS ORDERED: diphenhydrAMINE 25 MG CAP PO SCH (12:15)
[2021-01-24] MEDS ORDERED: Acetaminophen 500 MG TAB PO SCH (12:15)
[2021-01-24] MEDS ORDERED: Sodium Chloride 0.9% 20 ML ONE (12:26)
[2021-01-24 15:46] VITALS: BP 104/61; TEMP 97.9
== END 2021-01-24 15:46 | disposition home or self-care (01) ==
LOC: ONC/OP 12:03
PROVIDERS: ATTEND Internal Medicine Hematology & Oncology
PROC: 30233N1 Transfusion of Nonautologous Red Blood Cells into Peripheral Vein, Percutaneous Approach (ICD-10-PCS; principal; 2021-01-24)
PROC: 30233R1 Transfusion of Nonautologous Platelets into Peripheral Vein, Percutaneous Approach (ICD-10-PCS; 2021-01-24)
DX: D64.9 Anemia, unspecified (principal); D69.6 Thrombocytopenia, unspecified
CPT/HCPCS: 36430; 86850; 86900; 86901; J1642; P9016; P9035

== ENCOUNTER 2021-01-29 07:25 | Outpatient (CLI) | payer MEDICARE ==
[2021-01-29] MEDS ORDERED: Iopamidol 370 76% 100 ML VIAL ONE (09:37)
== END 2021-01-29 07:26 | disposition home or self-care (01) ==
LOC: CT 07:25
PROVIDERS: ATTEND Neurological Surgery
DX: C61 Malignant neoplasm of prostate (principal); C79.51 Secondary malignant neoplasm of bone; D65 Disseminated intravascular coagulation [defibrination syndrome]; D70.8 Other neutropenia; J90 Pleural effusion, not elsewhere classified; J98.11 Atelectasis; I62.00 Nontraumatic subdural hemorrhage, unspecified
CPT/HCPCS: 70450; 71260; 74177; Q9967

== ENCOUNTER 2021-01-31 11:14 | Outpatient (CLI) | payer MEDICARE | END 2021-01-31 11:15 | disposition home or self-care (01) | LOC: BICRAD 11:14 | PROVIDERS: ATTEND Internal Medicine Hematology & Oncology | DX: R06.02 Shortness of breath (principal); C61 Malignant neoplasm of prostate; C79.51 Secondary malignant neoplasm of bone; D65 Disseminated intravascular coagulation [defibrination syndrome]; D70.8 Other neutropenia; J90 Pleural effusion, not elsewhere classified | CPT/HCPCS: 71046; 85384; 85610; 85730; U0003; U0005 ==

== ENCOUNTER 2021-01-31 16:58 | Outpatient (CLI) | payer MEDICARE ==
[2021-02-01 00:51] LABS: SARS-CoV-2 PCR by NAA Not Detected (NotDetected)
== END 2021-01-31 16:59 | disposition home or self-care (01) ==
LOC: LABBT 16:58
PROVIDERS: ATTEND Internal Medicine Hematology & Oncology
DX: Z01.812 Encounter for preprocedural laboratory examination (principal); Z20.822 Contact with and (suspected) exposure to COVID-19
CPT/HCPCS: U0003; U0005

== ENCOUNTER 2021-02-03 07:50 | Day surgery (SDC) | payer MEDICARE ==
[~2021-02-03 07:50] MED LIST: Acetaminophen 500 MG TAB PO SCH; diphenhydrAMINE 25 MG CAP PO SCH
[2021-02-03] MEDS ORDERED: Sodium Chloride 0.9% 20 ML ONE (07:54)
[2021-02-03 09:40] VITALS: BP 104/61; TEMP 97.2
== END 2021-02-03 09:20 | disposition short-term general hospital (02) ==
LOC: ONC/OP 07:50
PROVIDERS: ATTEND Internal Medicine Hematology & Oncology
PROC: 30233R1 Transfusion of Nonautologous Platelets into Peripheral Vein, Percutaneous Approach (ICD-10-PCS; principal; 2021-02-03)
DX: D69.6 Thrombocytopenia, unspecified (principal); C61 Malignant neoplasm of prostate; C79.51 Secondary malignant neoplasm of bone; D63.0 Anemia in neoplastic disease
CPT/HCPCS: 32554; 36430; 82150; 82945; 83615; 83986; 84157; 84478; 85060; 86850; 86900; 86901; 87070; 87116; 87205; 87206; 88112; 88305; 88341; 88342; 89051; J1642; P9035

== ENCOUNTER 2021-02-03 09:23 | Day surgery (SDC) | payer MEDICARE ==
[2021-02-03] MEDS ORDERED: Sodium Chloride 0.9% 10 ML ONE (11:02)
[2021-02-03 11:13] LABS: RBC Count-Automated (BF) 18800 /cu.mm; WBC/Nucleated-Auto (BF) 2072 uL
[2021-02-03 11:18] LABS: Body Fluid Source Pleural Fluid; Clarity Cloudy/Turbid (Clear); Tube # 3
[2021-02-03 11:24] LABS: Fluid, Triglycerides 72 mg/dL (Not Available); Pleural Fluid, Amylase Less than 30 U/L (Not Available); Pleural Fluid, Glucose 96 mg/dL; Pleural Fluid, LDH 262 U/L (Not Available); Pleural Fluid, Protein 4.3 g/dL
[2021-02-03 11:56] LABS: BF Segmented Neutrophils 63 %; Cell Count Non Hematic 30 %; Lymphocytes 6 %
== END 2021-02-03 11:50 | disposition home or self-care (01) ==
LOC: SDC 09:23
PROVIDERS: ATTEND Internal Medicine Critical Care Medicine
PROC: 0W9930Z Drainage of Right Pleural Cavity with Drainage Device, Percutaneous Approach (ICD-10-PCS; principal; 2021-02-03)
DX: J90 Pleural effusion, not elsewhere classified (principal); C61 Malignant neoplasm of prostate; C79.51 Secondary malignant neoplasm of bone; D69.59 Other secondary thrombocytopenia; T45.1X5A Adverse effect of antineoplastic and immunosuppressive drugs, initial encounter
CPT/HCPCS: 82150; 82945; 83615; 83986; 84157; 84478; 85060; 87070; 87116; 87205; 87206; 89051; J1642

== ENCOUNTER 2021-02-27 09:50 | Outpatient (CLI) | payer MEDICARE | END 2021-02-27 09:51 | disposition home or self-care (01) | LOC: CT 09:50 | PROVIDERS: ATTEND Neurological Surgery | DX: I62.01 Nontraumatic acute subdural hemorrhage (principal); I62.03 Nontraumatic chronic subdural hemorrhage | CPT/HCPCS: 70450 ==

== ENCOUNTER 2021-02-28 09:11 | Day surgery (SDC) | payer MEDICARE ==
[~2021-02-28 09:11] MED LIST changes: +Acetaminophen 500 MG TAB PO PRN; -Acetaminophen 500 MG TAB PO SCH; +diphenhydrAMINE 25 MG CAP PO PRN; -diphenhydrAMINE 25 MG CAP PO SCH
[2021-02-28] MEDS ORDERED: Acetaminophen 500 MG TAB PO SCH (09:15)
[2021-02-28] MEDS ORDERED: diphenhydrAMINE 25 MG CAP PO SCH (09:30)
[2021-02-28 12:38] VITALS: BP 99/59; TEMP 98.2
== END 2021-02-28 12:38 | disposition home or self-care (01) ==
LOC: ONC/OP 09:11
PROVIDERS: ATTEND Internal Medicine Hematology & Oncology
PROC: 30233N1 Transfusion of Nonautologous Red Blood Cells into Peripheral Vein, Percutaneous Approach (ICD-10-PCS; principal; 2021-02-28)
DX: D64.9 Anemia, unspecified (principal); D69.6 Thrombocytopenia, unspecified
CPT/HCPCS: 36430; 86850; 86900; 86901; P9016

== ENCOUNTER 2021-03-03 08:57 | Outpatient (CLI) | payer MEDICARE ==
[2021-03-03] MEDS ORDERED: Iopamidol 370 76% 100 ML VIAL ONE (10:54)
== END 2021-03-03 08:58 | disposition home or self-care (01) ==
LOC: CT 08:57
PROVIDERS: ATTEND Internal Medicine Cardiovascular Disease
DX: I71.2 Thoracic aortic aneurysm, without rupture (principal); C61 Malignant neoplasm of prostate; J90 Pleural effusion, not elsewhere classified; C79.51 Secondary malignant neoplasm of bone
CPT/HCPCS: 71275; Q9967

== ENCOUNTER 2021-03-03 13:04 | Outpatient (CLI) | payer MEDICARE | END 2021-03-03 13:05 | disposition home or self-care (01) | LOC: RAD 13:04 | PROVIDERS: ATTEND Internal Medicine Critical Care Medicine | DX: R06.00 Dyspnea, unspecified (principal); C79.51 Secondary malignant neoplasm of bone; C61 Malignant neoplasm of prostate; J43.9 Emphysema, unspecified; J90 Pleural effusion, not elsewhere classified | CPT/HCPCS: 71046; J1642 ==

== ENCOUNTER 2021-03-14 08:54 | Day surgery (SDC) | payer MEDICARE ==
[~2021-03-14 08:54] MED LIST changes: -Acetaminophen 500 MG TAB PO PRN; +Acetaminophen 500 MG TAB PO SCH; -diphenhydrAMINE 25 MG CAP PO PRN; +diphenhydrAMINE 25 MG CAP PO SCH
[2021-03-14] MEDS ORDERED: Sodium Chloride 0.9% 10 ML ONE ×4 (09:09→09:38)
[2021-03-14] MEDS ORDERED: diphenhydrAMINE 25 MG CAP ONE (09:37)
[2021-03-14] MEDS ORDERED: Acetaminophen 500 MG TAB ONE (09:37)
[2021-03-14 12:24] VITALS: BP 102/65; TEMP 98
== END 2021-03-14 12:24 | disposition home or self-care (01) ==
LOC: ONC/OP 08:54
PROVIDERS: ATTEND Internal Medicine Hematology & Oncology
PROC: 30233N1 Transfusion of Nonautologous Red Blood Cells into Peripheral Vein, Percutaneous Approach (ICD-10-PCS; principal; 2021-03-14)
DX: D64.9 Anemia, unspecified (principal); D69.6 Thrombocytopenia, unspecified
CPT/HCPCS: 36430; 86850; 86900; 86901; J1642; P9016

== ENCOUNTER 2021-03-20 10:26 | Day surgery (SDC) | payer MEDICARE ==
[2021-03-20] MEDS ORDERED: diphenhydrAMINE 25 MG CAP ONE (11:10)
[2021-03-20] MEDS ORDERED: Acetaminophen 500 MG TAB ONE (11:11)
[2021-03-20] MEDS ORDERED: Sodium Chloride 0.9% 10 ML ONE ×2 (11:11)
[2021-03-20 15:03] VITALS: BP 102/59; TEMP 98
== END 2021-03-20 15:20 | disposition home or self-care (01) ==
LOC: ONC/OP 10:26
PROVIDERS: ATTEND Internal Medicine Hematology & Oncology
PROC: 30233N1 Transfusion of Nonautologous Red Blood Cells into Peripheral Vein, Percutaneous Approach (ICD-10-PCS; principal; 2021-03-20)
PROC: 30233R1 Transfusion of Nonautologous Platelets into Peripheral Vein, Percutaneous Approach (ICD-10-PCS; 2021-03-20)
DX: D64.9 Anemia, unspecified (principal); D69.6 Thrombocytopenia, unspecified
CPT/HCPCS: 36430; 86850; 86900; 86901; J1642; P9016; P9035

== ENCOUNTER 2021-03-31 13:29 | Day surgery (SDC) | payer MEDICARE ==
[2021-03-31] MEDS ORDERED: Acetaminophen 500 MG TAB ONE (13:47)
[2021-03-31] MEDS ORDERED: Sodium Chloride 0.9% 10 ML ONE ×2 (13:47)
[2021-03-31] MEDS: diphenhydrAMINE 25 MG CAP ONE (13:48)
[2021-03-31 16:16] VITALS: BP 111/66; TEMP 98.2
== END 2021-03-31 16:21 | disposition home or self-care (01) ==
LOC: ONC/OP 13:29
PROVIDERS: ATTEND Internal Medicine Hematology & Oncology
PROC: 30233N1 Transfusion of Nonautologous Red Blood Cells into Peripheral Vein, Percutaneous Approach (ICD-10-PCS; principal; 2021-03-31)
DX: D64.9 Anemia, unspecified (principal); D69.6 Thrombocytopenia, unspecified
CPT/HCPCS: 36430; 86850; 86900; 86901; J1642; P9016

== ENCOUNTER 2021-04-01 10:24 | Outpatient (CLI) | payer MEDICARE ==
[~2021-04-01 10:24] MED LIST changes: -Acetaminophen 500 MG TAB PO SCH; +Iopamidol-370 76% 500 ML 1 ML ONE; -diphenhydrAMINE 25 MG CAP PO SCH
== END 2021-04-01 10:25 | disposition home or self-care (01) ==
LOC: CT 10:24
PROVIDERS: ATTEND Internal Medicine Hematology & Oncology
DX: S06.5X0A Traumatic subdural hemorrhage without loss of consciousness, initial encounter (principal); C61 Malignant neoplasm of prostate; C79.51 Secondary malignant neoplasm of bone; D65 Disseminated intravascular coagulation [defibrination syndrome]; D70.8 Other neutropenia
CPT/HCPCS: 70470; Q9967

== ENCOUNTER 2021-04-02 13:59 | Day surgery (SDC) | payer MEDICARE ==
[2021-04-02] MEDS ORDERED: diphenhydrAMINE 25 MG CAP ONE (14:40)
[2021-04-02] MEDS ORDERED: Acetaminophen 500 MG TAB ONE (14:40)
[2021-04-02] MEDS ORDERED: Sodium Chloride 0.9% 10 ML ONE (14:40)
[2021-04-02] MEDS ORDERED: diphenhydrAMINE 25 MG CAP PO SCH (14:45)
[2021-04-02] MEDS ORDERED: Acetaminophen 500 MG TAB PO SCH (14:45)
[2021-04-02 15:51] VITALS: BP 91/62; TEMP 98.2
== END 2021-04-02 15:51 | disposition home or self-care (01) ==
LOC: ONC/OP 13:59
PROVIDERS: ATTEND Internal Medicine Hematology & Oncology
PROC: 30233R1 Transfusion of Nonautologous Platelets into Peripheral Vein, Percutaneous Approach (ICD-10-PCS; principal; 2021-04-02)
DX: D69.6 Thrombocytopenia, unspecified (principal); D64.9 Anemia, unspecified
CPT/HCPCS: 36430; 86850; 86900; 86901; J1642; P9035

== ENCOUNTER 2021-04-22 07:56 | Outpatient (CLI) | payer MEDICARE | END 2021-04-22 07:57 | disposition home or self-care (01) | LOC: CT 07:56 | PROVIDERS: ATTEND Internal Medicine Hematology & Oncology | DX: C61 Malignant neoplasm of prostate (principal); C79.51 Secondary malignant neoplasm of bone | CPT/HCPCS: 70450; 78306; A9503; J1642 ==

== ENCOUNTER 2021-04-30 12:37 | Day surgery (SDC) | payer MEDICARE ==
[2021-04-30] MEDS ORDERED: Sodium Chloride 0.9% 10 ML ONE ×2 (12:58)
[2021-04-30] MEDS ORDERED: Acetaminophen 500 MG TAB PO PRN (13:28)
[2021-04-30] MEDS ORDERED: diphenhydrAMINE 25 MG CAP PO PRN (13:28)
[2021-04-30] MEDS ORDERED: Acetaminophen 500 MG TAB ONE (13:54)
[2021-04-30] MEDS ORDERED: diphenhydrAMINE 25 MG CAP ONE (13:54)
[2021-04-30] MEDS ORDERED: Sodium Chloride 0.9% 500 ML IV SCH (14:45)
[2021-04-30] MEDS ORDERED: Sodium Chloride 0.9% 1,000 ML IV SCH (15:45)
[2021-04-30 16:33] VITALS: TEMP 98.1
[2021-04-30 17:34] VITALS: BP 86/52
== END 2021-04-30 17:33 | disposition home or self-care (01) ==
LOC: ONC/OP 12:37
PROVIDERS: ATTEND Internal Medicine Hematology & Oncology
PROC: 30233R1 Transfusion of Nonautologous Platelets into Peripheral Vein, Percutaneous Approach (ICD-10-PCS; principal; 2021-04-30)
DX: D69.6 Thrombocytopenia, unspecified (principal); D64.9 Anemia, unspecified
CPT/HCPCS: 36430; 86850; 86900; 86901; 96360; 99211; G0463; J1642; P9035

== ENCOUNTER 2021-05-02 13:04 | Inpatient (IN) | payer MEDICARE ==
[2021-05-02] MEDS ORDERED: Acetaminophen 325 MG TAB PO PRN (13:35)
[2021-05-02] MEDS: Sodium Chloride 0.9% 1,000 ML IV SCH (14:17)
[2021-05-02 14:30] LABS: Hemoglobin 8.3 g/dL (14.0-18.0); Mean Corpuscular HGB CONC 31.5 g/dL (32.0-36.0); Mean Corpuscular Hemoglobin 33.4 pg (27.0-31.0); Mean Platelet Volume 15.4 fL (7.4-10.4); Platelet Count 9 thou/uL (130-400); RBC Distribution Width 21.3 % (11.5-14.5); Red Blood Cell (RBC) Count 2.48 mill/uL (4.70-6.10); White Blood Cell (WBC) Count 5.1 thou/uL (4.8-10.8)
[2021-05-02] MEDS ORDERED: Docusate Sodium 10 MG/1 ML Oral Suspension PO SCH (14:30)
[2021-05-02] MEDS ORDERED: Promethazine HCl 12.5 MG in Sodium Chloride 0.9% 50 ML IVPB PRN (14:31)
[2021-05-02 14:41] LABS: Anion Gap 19 mmol/L (10-20); BUN (Urea Nitrogen) 36 mg/dL (8.4-25.7); Calc. Creatinine Clearance 0 mL/min (70-130); Calcium 7.4 mg/dL (7.8-10.44); Carbon Dioxide 17 mmol/L (23-31); Chloride 102 mmol/L (98-107); Glucose 78 mg/dL (80-115); Potassium 4.3 mmol/L (3.5-5.1); Sodium 134 mmol/L (136-145)
[2021-05-02] MEDS ORDERED: Morphine 4 MG/ML VIAL SLOW IVP PRN (14:41)
[2021-05-02] MEDS ORDERED: Polyethylene Glycol 3350 17 GM Packet PO SCH (14:45)
[2021-05-02] MEDS ORDERED: Fleet Enema 133 ML BOT PR SCH (14:45)
[2021-05-02 15:11] VITALS: BMI 21.4
[2021-05-02 15:11] LABS: Anisocytosis MODERATE=16-30 cells (100X) (0-5/hpf); Band 10 % (5-11); Lymphocytes 3 % (21-51); MDiff Complete? YES; Macrocytosis SLIGHT = 6-15 cells (100X) (0-5/hpf); Monocytes 2 % (0-10); Myelocyte 1 % (0-0); Neutrophil 84 % (42-75); Nucleated RBC 5 % (0); Ovalocytes SLIGHT = 2-5 cells (100X) (0-1/hpf); Platelet Morphology Comment Appears Decreased; Polychromasia MODERATE = 3-4 cells (100X) (0-2/hpf)
[2021-05-02] MEDS: Morphine 4 MG/ML VIAL SLOW IVP PRN ×2 (16:08→20:33)
[2021-05-02] MEDS: HYDROcodone/Acetaminophen 10/325 mg Tablet PO PRN (18:45)
[2021-05-02] MEDS: Pantoprazole 40 MG VIAL IVP SCH (20:33)
[2021-05-02] MEDS: Docusate 100 MG CAP PO SCH (20:33)
[2021-05-03] MEDS: Sodium Chloride 0.9% 1,000 ML IV SCH ×3 (02:21→20:36)
[2021-05-03] MEDS ORDERED: Sodium Chloride 0.9% 500 ML IV SCH (04:30)
[2021-05-03 05:07] LABS: Hemoglobin 9.6 g/dL (14.0-18.0); Mean Corpuscular HGB CONC 30.3 g/dL (32.0-36.0); Mean Corpuscular Hemoglobin 32.8 pg (27.0-31.0); Mean Platelet Volume 14.5 fL (7.4-10.4); Platelet Count 12 thou/uL (130-400); RBC Distribution Width 20.8 % (11.5-14.5); Red Blood Cell (RBC) Count 2.92 mill/uL (4.70-6.10); White Blood Cell (WBC) Count 9.3 thou/uL (4.8-10.8)
[2021-05-03 05:12] LABS: Anion Gap 18 mmol/L (10-20); BUN (Urea Nitrogen) 41 mg/dL (8.4-25.7); Calc. Creatinine Clearance 55 mL/min (70-130); Calcium 7.5 mg/dL (7.8-10.44); Carbon Dioxide 20 mmol/L (23-31); Chloride 105 mmol/L (98-107); Glucose 87 mg/dL (80-115); Potassium 4.4 mmol/L (3.5-5.1); Sodium 139 mmol/L (136-145)
[2021-05-03 05:21] LABS: Band 14 % (5-11); Eosinophils 1 % (0-10); Hypochromia SLIGHT = 6-15 cells (100X) (0-5/hpf); Lymphocytes 7 % (21-51); MDiff Complete? YES; Macrocytosis SLIGHT = 6-15 cells (100X) (0-5/hpf); Monocytes 5 % (0-10); Neutrophil 73 % (42-75); Nucleated RBC 9 % (0); Platelet Morphology Comment Appears Decreased
[2021-05-03] MEDS: Docusate 100 MG CAP PO SCH ×2 (09:06→20:36)
[2021-05-03] MEDS: Polyethylene Glycol 3350 17 GM Packet PO SCH (09:06)
[2021-05-03] MEDS: Ondansetron PF 4 MG/2 ML Vial IVP PRN (12:48)
[2021-05-03] MEDS: Pantoprazole 40 MG VIAL IVP SCH (20:36)
[2021-05-04] MEDS: Ondansetron PF 4 MG/2 ML Vial IVP PRN (07:57)
[2021-05-04] MEDS: Polyethylene Glycol 3350 17 GM Packet PO SCH (09:10)
[2021-05-04] MEDS: Docusate 100 MG CAP PO SCH ×2 (09:10→19:58)
[2021-05-04 09:46] LABS: Hemoglobin 8.1 g/dL (14.0-18.0); Mean Corpuscular HGB CONC 31.3 g/dL (32.0-36.0); Mean Corpuscular Hemoglobin 33.4 pg (27.0-31.0); Red Blood Cell (RBC) Count 2.42 mill/uL (4.70-6.10)
[2021-05-04 09:50] LABS: Anion Gap 21 mmol/L (10-20); BUN (Urea Nitrogen) 57 mg/dL (8.4-25.7); Calc. Creatinine Clearance 40 mL/min (70-130); Calcium 7.2 mg/dL (7.8-10.44); Carbon Dioxide 14 mmol/L (23-31); Chloride 104 mmol/L (98-107); Glucose 107 mg/dL (80-115); Potassium 4.4 mmol/L (3.5-5.1); Sodium 135 mmol/L (136-145)
[2021-05-04 10:00] LABS: Anisocytosis SLIGHT = 6-15 cells (100X) (0-5/hpf); Band 16 % (5-11); Lymphocytes 6 % (21-51); MDiff Complete? YES; Mean Platelet Volume 15.4 fL (7.4-10.4); Monocytes 7 % (0-10); Neutrophil 70 % (42-75); Nucleated RBC 13 % (0); Platelet Count 8 thou/uL (130-400); Platelet Morphology Comment Appears Decreased; Reactive Lymphocytes 1 % (0-10)
[2021-05-04] MEDS: HYDROcodone/Acetaminophen 10/325 mg Tablet PO PRN ×2 (11:45→18:28)
[2021-05-04] MEDS: Sodium Chloride 0.9% 1,000 ML IV SCH (16:50)
[2021-05-04] MEDS: Pantoprazole 40 MG VIAL IVP SCH (21:18)
[2021-05-05] MEDS: Sodium Chloride 0.9% 1,000 ML IV SCH (01:55)
[2021-05-05] MEDS: Morphine 4 MG/ML VIAL SLOW IVP PRN (02:00)
[2021-05-05 07:04] LABS: Hemoglobin 8.8 g/dL (14.0-18.0); Mean Corpuscular HGB CONC 29.2 g/dL (32.0-36.0); Mean Corpuscular Hemoglobin 32.7 pg (27.0-31.0); Mean Platelet Volume 14.6 fL (7.4-10.4); Platelet Count 14 thou/uL (130-400); RBC Distribution Width 22.3 % (11.5-14.5); Red Blood Cell (RBC) Count 2.68 mill/uL (4.70-6.10)
[2021-05-05 07:07] LABS: Anion Gap 19 mmol/L (10-20); BUN (Urea Nitrogen) 63 mg/dL (8.4-25.7); Calc. Creatinine Clearance 42 mL/min (70-130); Calcium 7.8 mg/dL (7.8-10.44); Carbon Dioxide 16 mmol/L (23-31); Chloride 108 mmol/L (98-107); Glucose 106 mg/dL (80-115); Potassium 5.3 mmol/L (3.5-5.1); Sodium 138 mmol/L (136-145)
[2021-05-05 09:16] LABS: Band 38 % (5-11); Eosinophils 1 % (0-10); Lymphocytes 14 % (21-51); MDiff Complete? YES; Macrocytosis MODERATE=16-30 cells (100X) (0-5/hpf); Metamyelocyte 10 % (0-0); Monocytes 3 % (0-10); Myelocyte 4 % (0-0); Neutrophil 23 % (42-75); Nucleated RBC 19 % (0); Platelet Morphology Comment Appears Decreased; Polychromasia MODERATE = 3-4 cells (100X) (0-2/hpf); Reactive Lymphocytes 7 % (0-10)
[2021-05-05 09:17] LABS: White Blood Cell (WBC) Count 10.7 thou/uL (4.8-10.8)
[2021-05-05 09:19] VITALS: BP 72/51; TEMP 97.5
== END 2021-05-05 10:54 | disposition expired | DRG 388 ==
LOC: MSONC 13:04 → OBSVTOIN 05-03 13:16
PROVIDERS: ADMIT Family Medicine; ATTEND Internal Medicine
DX: K56.41 Fecal impaction (principal); J96.00 Acute respiratory failure, unspecified whether with hypoxia or hypercapnia; N17.9 Acute kidney failure, unspecified; D61.818 Other pancytopenia; J90 Pleural effusion, not elsewhere classified; R18.8 Other ascites; E87.2 Acidosis; E87.1 Hypo-osmolality and hyponatremia; R64 Cachexia; Z66 Do not resuscitate; D64.9 Anemia, unspecified; E86.0 Dehydration; Z98.890 Other specified postprocedural states; Z85.46 Personal history of malignant neoplasm of prostate; Z68.21 Body mass index [BMI] 21.0-21.9, adult
CPT/HCPCS: 36415; 74018; 74176; 80048; 85025; 86850; 86900; 86901; 93005; 93010; 96374; 96375; 96376; C9113; G0378; J2270; J2405; J7050